=== PATIENT | female | born 1985 | race African-American/Black ===

== ENCOUNTER 2017-05-22 22:02 | Emergency (ER) | payer SELFPAY ==
[2017-05-22 22:16] LABS: Bilirubin Negative (Negative); Blood, Urine Large (Negative); Clarity CLOUDY (Clear); Glucose, Urine (Dipstick) Negative (Negative); Leukocyte Trace (Negative); Nitrite Negative (Negative); Protein, Urine (Dipstick) 100 mg/dL (Neg-Trace); Specific Gravity, Urine 1.008 (1.002-1.036); Urobilinogen 0.2 mg/dL (0.2-1.0); pH, Urine 6.5 (5.0-9.0)
[2017-05-22 22:17] LABS: Pregnancy Test - Urine (BHCG) POSITIVE (Negative); Pregu Control Background? CLEAR/WHITE (CLR/WHITE); Pregu Control Bar Appear? YES (CONTROL BAR); Specific Gravity 1.008 (1.002-1.036)
[2017-05-22 22:18] LABS: Bacteria/HPF None Seen HPF (None Seen); Hyaline Casts/LPF 0-3 HYALINE CAST LPF (0-3 Hyaline); RBC/HPF GREATER THAN 50-TNTC HPF (0-3); Squamous Epithelial 0-3 HPF (0-3); WBC/HPF 0-3 HPF (0-3)
[2017-05-22 22:58] LABS: #Basophils 0.1 thou/uL (0.0-0.2); #Eosinphils 0.2 thou/uL (0.0-0.7); #Lymphocytes 3.4 thou/uL (1.20-3.40); #Monocytes 0.5 thou/uL (0.11-0.59); %Basophils 0.8 % (0.0-1.0); %Eosinophils 2.8 % (0.0-10.0); %Lymphocytes 47.2 % (21.0-51.0); %Monocytes 6.9 % (0.0-10.0); %Neutrophils 42.3 % (42.0-75.0); Hemoglobin 13.3 g/dL (12.0-16.0); Mean Corpuscular Hemoglobin 34.3 pg (27.0-31.0); Mean Corpuscular Volume 97.9 fl (81.0-99.0); Mean Platelet Volume 7.3 fL (7.4-10.4); Platelet Count 201 thou/uL (130-400); RBC Distribution Width 10.6 % (11.5-14.5); Red Blood Cell (RBC) Count 3.87 mill/uL (4.20-5.40); White Blood Cell (WBC) Count 7.2 thou/uL (4.8-10.8)
[2017-05-22 23:04] LABS: Anion Gap 12 mmol/L (10-20); BUN (Urea Nitrogen) 9 mg/dL (7.0-18.7); Calc. Creatinine Clearance 0 mL/min (70-130); Calcium 9.4 mg/dL (7.8-10.44); Carbon Dioxide 23 mmol/L (22-29); Chloride 106 mmol/L (98-107); Estimated GFR-MDRD Greater than 90; Glucose 95 mg/dL (70-105); Potassium 3.6 mmol/L (3.5-5.1); Sodium 137 mmol/L (136-145)
--- NOTE | 2017-05-23 00:30 | ULT ---
PELVIC ULTRASOUND 05/22/17 HISTORY: Vaginal bleeding. First trimester . FINDINGS: The uterus measures 10.4 cm x 6.4 cm x 7.4 cm. There is a fluid collection seen in the endometrial ca nal which contains both a pole and a yolk sac. Cardiac doppler does demonstrate heart ton es with a heart rate of 160 beats per minute. The crown-rump length measures 2.8 cm consistent with a gestational age by ultrasound of 9 weeks and 4 days with an GRECIA on 12/21/17. There is a tiny curvilinear hypoechoic area seen in a subchorionic location in the lower uterine segm ent which may represent a tiny subchorionic hemorrhage. The ovaries demonstrate a normal sonographic appearance bilaterally with the right ovary measuring 4. 4 cm x 2.4 cm x 1.6 cm and left ovary measuring 3.2 cm x 1.4 cm x 2.7 cm. Doppler evaluation with spe ctral analysis and color flow evaluation of each ovary demonstrates arterial and venous flow in each ovary. Fallopian tubes are not visualized bilaterally. No free fluid is seen in the cul-de-sac. IMPRESSION: 1. Single intrauterine gestation with heart tones documented. Estimated gestational age by measurement of the crown-rump length is 9 weeks and 4 days. 2. Suggestion of a tiny subchorionic hemorrhage measuring approximately 31 mm in length and 2 mm in transverse dimension. 3. Above findings discussed with Dr. Wallace in the Emergency Department on 05/22/17 at 2356 hours . POS: [facility]
[2017-05-24 01:02] LABS: Chlamydia by PCR Not Detected (NotDetected); GC by PCR Not Detected (NotDetected)
== END 2017-05-23 00:25 | disposition home or self-care (01) ==
LOC: ERS 22:02
DX: O20.8 Other hemorrhage in early pregnancy (principal); O99.331 Smoking (tobacco) complicating pregnancy, first trimester; Z3A.09 9 weeks gestation of pregnancy
CPT/HCPCS: 36415; 76856; 80048; 81003; 81015; 81025; 84702; 85025; 86900; 86901; 87480; 87491; 87510; 87591; 87660; 99406

== ENCOUNTER 2020-01-19 20:30 | Emergency (ER) | payer BC, SELFPAY | END 2020-01-19 21:08 | disposition home or self-care (01) | LOC: ERS 20:30 | DX: K64.4 Residual hemorrhoidal skin tags (principal); F17.210 Nicotine dependence, cigarettes, uncomplicated | CPT/HCPCS: 99283 ==